=== PATIENT | male | born 1950 | race Caucasian/White ===

== ENCOUNTER 2017-02-20 15:40 | Emergency (ER) | payer MEDICARE, BC ==
[2017-02-20] MEDS ORDERED: Lidocaine 1% w/Epinephrine 1:100K 30 ML VIAL ONE (16:15)
[2017-02-20] MEDS ORDERED: Sodium Bicarbonate 2.4 MEQ/5 ML ONE (16:15)
== END 2017-02-20 17:46 | disposition home or self-care (01) ==
LOC: BURERS 15:40
DX: S40.812A Abrasion of left upper arm, initial encounter (principal); X58.XXXA Exposure to other specified factors, initial encounter; Z79.899 Other long term (current) drug therapy; Z79.82 Long term (current) use of aspirin
CPT/HCPCS: 12001; J2001

== ENCOUNTER 2017-03-18 13:00 | Outpatient (CLI) | payer MEDICARE, BC ==
[2017-03-18 13:17] LABS: #Eosinphils 0.2 thou/uL (0.0-0.7); #Lymphocytes 1.2 thou/uL (1.20-3.40); #Monocytes 0.4 thou/uL (0.11-0.59); #Neutrophils 4.5 thou/uL (1.40-6.50); %Basophils 0.3 % (0.0-1.0); %Eosinophils 3.9 % (0.0-10.0); %Lymphocytes 18.7 % (21.0-51.0); %Monocytes 6.9 % (0.0-10.0); %Neutrophils 70.3 % (42.0-75.0); Hemoglobin 13.8 g/dL (14.0-18.0); Mean Corpuscular HGB CONC 34.7 g/dL (32.0-36.0); Mean Corpuscular Hemoglobin 31.7 pg (27.0-31.0); Mean Corpuscular Volume 91.4 fl (80.0-94.0); Mean Platelet Volume 6.8 fL (7.4-10.4); Platelet Count 175 thou/uL (130-400); RBC Distribution Width 13.7 % (11.5-14.5); Red Blood Cell (RBC) Count 4.34 mill/uL (4.70-6.10); White Blood Cell (WBC) Count 6.3 thou/uL (4.8-10.8)
[2017-03-18 13:26] LABS: ALT (SGPT) 19 U/L (8-55); AST (SGOT) 21 U/L (5-34); Albumin 4.2 g/dL (3.4-4.8); Alkaline Phosphatase 53 U/L (40-150); Anion Gap 15 mmol/L (10-20); BUN (Urea Nitrogen) 16 mg/dL (8.4-25.7); Bilirubin, Total 0.7 mg/dL (0.2-1.2); Calc. Creatinine Clearance 0 mL/min (70-130); Calcium 9.2 mg/dL (7.8-10.44); Carbon Dioxide 24 mmol/L (23-31); Cardiac Risk 4.8 (Less than 4.5); Chloride 106 mmol/L (98-107); Cholesterol 149 mg/dl (< 200 Desired); Estimated GFR-MDRD 73; Globulin 2.7 g/dL (2.4-3.5); Glucose 92 mg/dL (80-115); HDL Cholesterol 31 mg/dL (>60 Neg Risk); LDL Cholesterol, Calculated 50 mg/dL; Potassium 4.1 mmol/L (3.5-5.1); Protein, Total 6.9 g/dL (5.8-8.1); Sodium 141 mmol/L (136-145); Triglycerides 338 mg/dL (Less than 150)
== END 2017-03-18 13:01 | disposition home or self-care (01) ==
LOC: HPCALD 13:00
PROVIDERS: ATTEND Family Medicine
DX: Z12.5 Encounter for screening for malignant neoplasm of prostate (principal); I10 Essential (primary) hypertension; E78.5 Hyperlipidemia, unspecified
CPT/HCPCS: 36415; 80053; 80061; 85025; G0103

== ENCOUNTER 2017-04-26 10:47 | Emergency (ER) | payer MEDICARE, BC, OTHER ==
[2017-04-26 11:16] LABS: Bilirubin Negative (Negative); Blood, Urine Small (Negative); Clarity Clear (Clear); Glucose, Urine (Dipstick) Negative (Negative); Leukocyte Trace (Negative); Nitrite Negative (Negative); Protein, Urine (Dipstick) Negative (Neg-Trace); Specific Gravity, Urine 1.015 (1.005-1.030); Urobilinogen 0.2 mg/dL (0.2-1.0); pH, Urine 5.5 (5.0-9.0)
[2017-04-26] MEDS ORDERED: traMADol HCl 50 MG TAB ONE (11:17)
[2017-04-26 11:21] LABS: Bacteria/HPF None Seen HPF (None Seen); RBC/HPF 0-3 HPF (0-3); Squamous Epithelial 0-3 HPF (0-3); WBC/HPF 0-3 HPF (0-3)
[2017-04-26] MEDS ORDERED: HYDROcodone/Acetaminophen 5/325 mg Tablet ONE (11:59)
--- NOTE | 2017-04-26 16:55 | RAD ---
LEFT HIP 3 VIEWS: Date: 04/26/17 No acute fracture was seen. All bones appeared intact. Hip joint space was normal in width. IMPRESSION: No acute findings. POS: HOME
--- NOTE | 2017-04-26 16:55 | CT ---
CT OF THE BRAIN WITHOUT CONTRAST: Date: 04/26/[address] was performed following trauma and is compared with the 06/28/15 study. FINDINGS: The ventricles are normal in size with no shift. No intracranial bleeding or extra-axial hematoma se en. There is an old lacunar infarct in the left basal ganglia that was not visible on the prior stud y. There were no findings of acute CVA, mass, or edema. The calvarium appears intact and the sphenoi d sinus and mastoid air cells are clear. IMPRESSION: No acute intracranial findings. POS: HOME
--- NOTE | 2017-04-26 16:58 | RAD ---
PORTABLE CHEST: Date: 04/26/17 An AP portable film at 1120 hours shows mild cardiomegaly but no congestive change or pleural effusi on. The mediastinum shows no widening or shift. The lungs are fully inflated and clear. No gross fra ctures were identified, though there is a little bit of pleural thickening along each lateral hemith orax. Dedicated rib films would be needed to see potential rib fractures. IMPRESSION: Chronic changes, but no acute finding. POS: HOME
== END 2017-04-26 12:00 | disposition home or self-care (01) ==
LOC: BURERS 10:47
DX: S09.90XA Unspecified injury of head, initial encounter (principal); S20.212A Contusion of left front wall of thorax, initial encounter; S70.02XA Contusion of left hip, initial encounter; S41.112A Laceration without foreign body of left upper arm, initial encounter; E78.5 Hyperlipidemia, unspecified; I10 Essential (primary) hypertension; Z79.1 Long term (current) use of non-steroidal anti-inflammatories (NSAID); Z79.82 Long term (current) use of aspirin; Z79.01 Long term (current) use of anticoagulants; Z79.899 Other long term (current) drug therapy; V49.40XA Driver injured in collision with unspecified motor vehicles in traffic accident, initial encounter
CPT/HCPCS: 70450; 71010; 81003; 81015; 93798

== ENCOUNTER 2017-05-04 09:12 | Emergency (ER) | payer MEDICARE, BC ==
[2017-05-04] MEDS ORDERED: Fentanyl 100 MCG/2 ML VIAL ONE ×2 (09:36→10:36)
[2017-05-04 09:45] LABS: #Eosinphils 0.2 thou/uL (0.0-0.7); #Lymphocytes 1.3 thou/uL (1.20-3.40); #Monocytes 0.4 thou/uL (0.11-0.59); #Neutrophils 4.5 thou/uL (1.40-6.50); %Basophils 0.7 % (0.0-1.0); %Eosinophils 3.8 % (0.0-10.0); %Monocytes 6.5 % (0.0-10.0); %Neutrophils 69.1 % (42.0-75.0); Hemoglobin 14.9 g/dL (14.0-18.0); Mean Corpuscular HGB CONC 34.8 g/dL (32.0-36.0); Mean Corpuscular Hemoglobin 32.7 pg (27.0-31.0); Mean Corpuscular Volume 93.9 fl (80.0-94.0); Platelet Count 160 thou/uL (130-400); RBC Distribution Width 11.8 % (11.5-14.5); Red Blood Cell (RBC) Count 4.55 mill/uL (4.70-6.10); White Blood Cell (WBC) Count 6.6 thou/uL (4.8-10.8)
[2017-05-04 09:47] LABS: INR-International Normal Ratio 1.1; PTT 29.8 SEC (22.9-36.1)
[2017-05-04 09:57] LABS: ALT (SGPT) 17 U/L (8-55); AST (SGOT) 20 U/L (5-34); Albumin 4.5 g/dL (3.4-4.8); Alkaline Phosphatase 63 U/L (40-150); Anion Gap 15 mmol/L (10-20); BUN (Urea Nitrogen) 17 mg/dL (8.4-25.7); Bilirubin, Total 0.7 mg/dL (0.2-1.2); Calc. Creatinine Clearance 0 mL/min (70-130); Calcium 9.8 mg/dL (7.8-10.44); Carbon Dioxide 26 mmol/L (23-31); Chloride 103 mmol/L (98-107); Estimated GFR-MDRD 66; Globulin 3.5 g/dL (2.4-3.5); Glucose 119 mg/dL (80-115); Lipase 15 U/L (8-78); Sodium 140 mmol/L (136-145)
[2017-05-04 11:05] LABS: Bilirubin Negative (Negative); Blood, Urine Small (Negative); Clarity Clear (Clear); Glucose, Urine (Dipstick) Negative (Negative); Leukocyte Negative (Negative); Nitrite Negative (Negative); Protein, Urine (Dipstick) Negative (Neg-Trace)
[2017-05-04 11:12] LABS: Squamous Epithelial 0-3 HPF (0-3); WBC/HPF 0-3 HPF (0-3)
[2017-05-04 11:13] LABS: Bacteria/HPF 1+ HPF (None Seen)
[2017-05-04] MEDS ORDERED: Dexamethasone 4 mg/ml Vial ONE (11:19)
--- NOTE | 2017-05-04 23:40 | CT ---
CT CHEST WITH CONTRAST CT ABDOMEN AND PELVIS WITH CONTRAST 05/04/[address] of the chest, abdomen and pelvis was performed following trauma. Axial slices were acquire d, then coronal and sagittal reconstructions were done. IV contrast was used as well as a small amou nt of oral contrast. CT OF THE THORAX: There is no signs of mediastinal hematoma, mass, or adenopathy. The ascending aorta is slightly wide r than expected at 4.1 cm. There is no true aneurysm. No pericardial fluid was seen, but there is co ronary artery calcification, particularly in the left coronary system. The lungs are clear with no parenchymal contusion seen. There is no pneumothorax or significant pleu ral effusion. A subtle line is seen in the left 7th rib posteriorly. A nondisplaced fracture is susp ected. Correlate with site of pain. The vertebra show degenerative change but otherwise appear intact. There appears to be a pleural calcification in the left upper chest anteriorly at the level of the a ortic arch, but it is not acute. IMPRESSION: 1. Suspect a nondisplaced fracture of the left 7th rib posteriorly near the paraspinous area. 2. No acute thoracic findings otherwise. 3. Coronary artery calcifications. CT ABDOMEN AND PELVIS WITH CONTRAST: All major organs appear intact. The liver, spleen, pancreas, gallbladder, adrenal glands, kidneys an d abdominal aorta all showed no acute traumatic changes. There is a 2.8 cm cyst in the anterior part of the right kidney. There is no dilation of bowel or thickening of bowel wall. No free fluid or free air was seen. CT of the pelvis showed no pelvic masses, fluid collections or significant inflammatory changes. The bony pelvis and lumbar spine showed no acute traumatic changes. There are degenerative changes in t he lumbar spine, however. IMPRESSION: No acute traumatic findings. POS: HOME
== END 2017-05-04 11:46 | disposition home or self-care (01) ==
LOC: BURERS 09:12
DX: S22.32XA Fracture of one rib, left side, initial encounter for closed fracture (principal); S30.1XXA Contusion of abdominal wall, initial encounter; E78.5 Hyperlipidemia, unspecified; I10 Essential (primary) hypertension; Z79.2 Long term (current) use of antibiotics; Z79.82 Long term (current) use of aspirin; Z79.899 Other long term (current) drug therapy; V49.9XXA Car occupant (driver) (passenger) injured in unspecified traffic accident, initial encounter
CPT/HCPCS: 71260; 74177; 80053; 81003; 81015; 83690; 85025; 85610; 85730; 96374; 96376; J1100; J3010

== ENCOUNTER 2017-07-28 20:28 | Emergency (ER) | payer MEDICARE, BC ==
--- NOTE | 2017-07-28 21:17 | RAD ---
THREE VIEW OF THE RIGHT THUMB 07/28/17 CLINICAL HISTORY: Injury. There is soft tissue laceration of the thumb. No underlying acute fracture see. 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 IMPRESSION: Soft tissue laceration of the thumb without underlying acute fracture evident. POS: [facility]
== END 2017-07-28 21:26 | disposition home or self-care (01) ==
LOC: BURERS 20:28
DX: S61.411A Laceration without foreign body of right hand, initial encounter (principal); E78.5 Hyperlipidemia, unspecified; I10 Essential (primary) hypertension; Z79.899 Other long term (current) drug therapy; W29.8XXA Contact with other powered hand tools and household machinery, initial encounter; Y92.009 Unspecified place in unspecified non-institutional (private) residence as the place of occurrence of the external cause
CPT/HCPCS: 11042

== ENCOUNTER 2017-11-15 13:28 | Emergency (ER) | payer MEDICARE, BC ==
[2017-11-15] MEDS ORDERED: Ketorolac Tromethamine 30 MG/ML VIAL ONE (13:48)
[2017-11-15 14:14] LABS: INR-International Normal Ratio 1.2; PTT 34.1 SEC (22.9-36.1)
[2017-11-15 14:22] LABS: #Lymphocytes 0.6 thou/uL (1.20-3.40); #Monocytes 0.3 thou/uL (0.11-0.59); #Neutrophils 4.1 thou/uL (1.40-6.50); %Basophils 0.3 % (0.0-1.0); %Lymphocytes 11.8 % (21.0-51.0); %Monocytes 6.8 % (0.0-10.0); %Neutrophils 81.1 % (42.0-75.0); Hemoglobin 14.9 g/dL (14.0-18.0); Mean Corpuscular HGB CONC 35.6 g/dL (32.0-36.0); Mean Corpuscular Hemoglobin 32.1 pg (27.0-31.0); Mean Corpuscular Volume 90.1 fl (80.0-94.0); Mean Platelet Volume 6.4 fL (7.4-10.4); Platelet Count 103 thou/uL (130-400); RBC Distribution Width 12.1 % (11.5-14.5); Red Blood Cell (RBC) Count 4.65 mill/uL (4.70-6.10)
[2017-11-15 14:23] LABS: ALT (SGPT) 38 U/L (8-55); AST (SGOT) 36 U/L (5-34); Albumin 4.4 g/dL (3.4-4.8); Alkaline Phosphatase 44 U/L (40-150); Anion Gap 14 mmol/L (10-20); BUN (Urea Nitrogen) 14 mg/dL (8.4-25.7); Calc. Creatinine Clearance 0 mL/min (70-130); Calcium 9.5 mg/dL (7.8-10.44); Carbon Dioxide 21 mmol/L (23-31); Chloride 104 mmol/L (98-107); Estimated GFR-MDRD 84; Globulin 2.9 g/dL (2.4-3.5); Glucose 119 mg/dL (80-115); Protein, Total 7.3 g/dL (5.8-8.1); Sodium 135 mmol/L (136-145)
[2017-11-15 14:29] LABS: MDiff Complete? YES
== END 2017-11-15 14:40 | disposition home or self-care (01) ==
LOC: BURERS 13:28
DX: J30.1 Allergic rhinitis due to pollen (principal); E78.5 Hyperlipidemia, unspecified; I10 Essential (primary) hypertension
CPT/HCPCS: 80053; 85025; 85610; 85652; 85730; 93005; 96372; J1885

== ENCOUNTER 2018-02-24 11:22 | Outpatient (CLI) | payer MEDICARE, BC ==
--- NOTE | 2018-02-28 07:31 | RAD ---
ABDOMEN ONE VIEW: 02/24/18 The abdominal gas pattern is normal. there is no sign of obstruction. Pelvic calcifications are most likely phleboliths. If there was concern for ureteral calculi, then other studies would be needed to be certain. Degenerative changes are seen in the lower lumbar spine. IMPRESSION: No acute abdominal finding. POS: HOME
== END 2018-02-24 11:23 | disposition home or self-care (01) ==
LOC: BURRAD 11:22
PROVIDERS: ATTEND Family Medicine
DX: R10.9 Unspecified abdominal pain (principal)
CPT/HCPCS: 74018

== ENCOUNTER 2018-07-29 09:00 | Outpatient (CLI) | payer MEDICARE, BC ==
[2018-07-29 09:45] LABS: Calc. Creatinine Clearance 0 mL/min (70-130); Estimated GFR-MDRD Greater than 90
--- NOTE | 2018-07-29 14:43 | CT ---
CT ABDOMEN AND PELVIS WITH CONTRAST: Date: 07-29-[address] of the abdomen and pelvis was obtained for evaluation of generalized abdominal pain. Axial slices were acquired followed by coronal and sagittal reconstructions. FINDINGS: The lung bases are clear. There has been prior surgery around the aortic valve. The liver is unremark able in appearance. The spleen was borderline large measuring a little over 14 cm in length. The panc reas, adrenal glands, gallbladder, and abdominal aorta showed no acute findings. I would note that th e aorta transiently dilates just above the bifurcation to about 2.6 cm in diameter. It should be mere ly watched in the future. There is a 3.2 cm cyst in the middle third of the right kidney. There is no hydronephrosis. CT of the pelvis shows no pelvic masses, fluid collections, or inflammatory changes. IMPRESSION: 1. No acute abdominal or pelvic findings to explain pain. 2. Borderline splenic size. 3. 3.2 cm right renal cyst. POS: HOME
== END 2018-07-29 09:01 | disposition home or self-care (01) ==
LOC: BURCT 09:00
PROVIDERS: ATTEND Family Medicine
DX: Z01.812 Encounter for preprocedural laboratory examination (principal); N28.1 Cyst of kidney, acquired; R10.84 Generalized abdominal pain
CPT/HCPCS: 36415; 74177; 82565

== ENCOUNTER 2018-09-08 16:57 | Emergency (ER) | payer MEDICARE, BC ==
--- NOTE | 2018-09-08 20:46 | RAD ---
LEFT HAND THREE VIEWS: 09/08/18 No fracture or dislocation was seen. There is severe degenerative changes in the first carpometacarpa l joint. The other joints appear more normal. The distal radius and ulna were unremarkable. IMPRESSION: Severe degenerative change of the first carpometacarpal joint. Code T POS: HOME
== END 2018-09-08 18:06 | disposition home or self-care (01) ==
LOC: BURERS 16:57
DX: S60.032A Contusion of left middle finger without damage to nail, initial encounter (principal); E78.5 Hyperlipidemia, unspecified; I10 Essential (primary) hypertension; W22.8XXA Striking against or struck by other objects, initial encounter

== ENCOUNTER 2019-02-10 11:12 | Emergency (ER) | payer MEDICARE, BC ==
--- NOTE | 2019-02-10 12:04 | RAD ---
LEFTankle 3 views INDICATION: Left ankle pain COMPARISON: None. FINDINGS: Bones: Intact. Ankle mortise: Symmetric. Talar Dome: Intact. Subtalar joint: Normal. Visualized hindfoot: There is moderate enthesopathic change off the posterior and plantar aspect of t he calcaneus. Periarticular soft tissues: There is mild circumferential soft tissue swelling of the left ankle. IMPRESSION: 1. No acute fracture or subluxation demonstrated.
== END 2019-02-10 12:35 | disposition home or self-care (01) ==
LOC: BURERS 11:12
DX: M10.9 Gout, unspecified (principal); M25.572 Pain in left ankle and joints of left foot; E78.5 Hyperlipidemia, unspecified; I10 Essential (primary) hypertension; Z79.899 Other long term (current) drug therapy; Z79.01 Long term (current) use of anticoagulants
CPT/HCPCS: 36415; 84550

== ENCOUNTER 2021-02-28 11:17 | Outpatient (CLI) | payer MEDICARE, BC | END 2021-02-28 11:18 | disposition home or self-care (01) | LOC: BURRAD 11:17 | PROVIDERS: ATTEND Family Medicine | DX: M47.26 Other spondylosis with radiculopathy, lumbar region (principal) | CPT/HCPCS: 72100 ==